=== PATIENT | female | born 1950 | race Caucasian/White ===

== ENCOUNTER 2016-10-17 12:40 | Emergency (ER) | payer OTHER ==
[~2016-10-17] VITALS: Ht 161.3 cm; Wt 58.0 kg
[~2016-10-17 12:40] MED LIST: CHOL200025 PO; CYAN1TAB42 PO; ESTR1PAT10 TD; IBUP200T48 PO; PER5 PO; POLY1PAC PO
[2016-10-17 12:45] VITALS: BP 158/93; PULSE 118; RESP 15; O2SAT 100
[2016-10-17 13:20] LABS: BASOPHILS % (AUTO) 0.4 % (0-3); EOSINOPHILS % (AUTO) 0.7 % (0-5); MONOCYTES % (AUTO) 8.7 % (4-12); Mean Corpuscular Volume 96.8 fL (81-100); NEUTROPHILS % (AUTO) 67.8 % (40-74); Platelet Count 229 bil/L (150-400)
[2016-10-17] MEDS ORDERED: 0.9% Sodium Chloride 1,000 ML IV ONE (13:35)
--- NOTE | 2016-10-17 13:42 | DRSVH ---
PROCEDURE: X-RAY CHEST ONE VIEW, PORTABLE ([id number]) INDICATIONS: Chest pain TECHNIQUE: One view of the chest was acquired. COMPARISON: None. FINDINGS: Surgical changes and devices: None. Lungs and pleura: No pleural effusions or pneumothorax. Lungs are clear. Mediastinum: Mediastinal contours appear normal. Heart size is normal. Bones and chest wall: No suspicious bony lesions. Overlying soft tissues appear unremarkable. IMPRESSION: No acute cardiopulmonary disease process. Dictated by: Marina Ruiz MD, PhD on 10/17/2016 at 13:40 Approved by: Marina Ruiz MD, PhD on 10/17/2016 at 13:40
[2016-10-17 13:44] LABS: TROPONIN T < 0.010 ug/L (0.0-0.011)
[2016-10-17 13:53] LABS: Magnesium 2.4 mg/dL (1.6-2.6)
--- NOTE | 2016-10-17 14:43 | ED.REPORT ---
HPI-General Illness Date of Service Oct 17, 2016 ED Provider: Kory Steward DO Mrs. Mariangel Muniz is a healthy 66-year-old with benign past medical history recent elevation in cholesterol, hysterectomy 6 years ago, and IBS, currently not on estrogen presents to the [facility] emergency Department with 2 week history of intermittent elevated heart rate at rest with associated heartburn, headache, blurry vision, left shoulder "twingeing." She reports that one of these episodes on Friday schedule appointment for her primary care physician on the following Friday at which point an EKG was obtained which was normal and she was advised to call the emergency department if another one of these episodes happened. 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 He currently takes no prescription medications, has allergy to codeine, and antihistamine? She denies fever, chills, nausea, vomiting, dizziness, syncope, difficulty breathing, abdominal pain. Nursing Notes Stated Complaint: HR INCREASING/DIZZY Chief Complaint: Dysrhythmia/Cardiac Nursing Notes Reviewed: Yes Allergies: Coded Allergies: codeine (Verified Allergy, Unknown, UNKNOWN, 06/03/13) Uncoded Allergies: ANTIHISTIME (Allergy, Intermediate, make sleepy, 07/06/13) Scheduled Cholecalciferol-Expunged Drug, Do Not Renew! (Vitamin D3-Expunged Drug, Do Not Renew!) 2,000 Unit Tablet 2,000 UNIT PO DAILY Cyanocobalamin/FA-Expunged Drug, Do Not Renew (Vitamin E34-Znbvu Acid-Expunged Drug, Do Not) 1 Each Tablet 1 EACH PO DAILY 500MCG Estradiol-Expunged Drug, Do Not Renew! (Xyrytpt-Jit-Wvvgdgac Drug, Do Not Renew! ) 1 Patch.bwk Patch.tdsw 1 PATCH.BWK TD 2X/WK 0.025MG/24HRS IBUPROFEN-Expunged Drug, Do Not Renew! (IBUPROFEN-Expunged Drug, Do Not Renew!) 200 Mg Tablet 200 MG PO PRN PEG 3350-Expunged Drug, Do Not Renew! (MIRALAX-Expunged Drug, Do Not Renew!) 17 Gm/Pkt Packet 17 GM PO DAILY Mix with 8 oz water, soda, juice, coffee or tea. Scheduled PRN oxyCODone/APAP-Expunged, Do Not Renew! (oxyCODone/Apap 5/325mg-Expunged, Do Not Renew) Tablet 1 TAB PO Q4H PRN PRN One tablet by mouth every 4-6 hours as needed for severe pain. General Time Seen by MD: 13:05 Chief Complaint Not feeling well Sudden in Onset?: Yes Past Medical History Past Medical History Hysterectomy 6 years ago. Unspecified Left Lower extremity ortho procedure. IBS Cervical spondolysis Abnormal postmenopausal bleeding Urinary retention Review of Systems A comprehensive review of systems was conducted with the patient and found to be negative except as above in the History of Present Illness. Physical Exam General: Appears younger than stated age pleasant elderly lady sitting up in bed and currently in no acute distress, well-developed, well-nourished, appropriately interactive HEENT: Normocephalic, atraumatic. External ears without defect. Pupils equal, round, and reactive to light and accommodation. Anicteric sclerae, moist conjunctivae, and no lid lag. Oropharynx free of erythema and cobble stoning with moist mucosa. Neck: Supple with full range of motion. No jugular venous distension. No bruits. No lymphadenopathy or thyromegaly. Cardiovascular: Regular rate and rhythm with no murmurs, rubs, or gallops appreciated Pulmonary: Clear to auscultation bilaterally with no crackles, wheezes, or rhonchi. Normal respiratory effort with no use of accessory muscles. Abdomen: Bowel tones present. Soft, nontender, nondistended. No hepatosplenomegaly or masses appreciated. Extremities: No clubbing, cyanosis, edema, or lymphadenopathy appreciated. Skin: Normal temperature, turgor, and texture; no rash, ulcers, or subcutaneous nodules appreciated. Neurological: Cranial nerves grossly intact. Normal muscle strength, tone, and bulk. Reflexes, coordination, and sensory function within normal limits. No known gait impairment. Psychiatric: Normal mood and affect. Alert and oriented to person, place, and time. Vital Signs Vital Signs Date Time Temp Pulse Resp B/P Pulse Ox O2 Delivery O2 Flow Rate FiO2 10/17/16 15:03 83 16 154/93 98 10/17/16 12:45 36.4 118 15 158/93 100 Room Air Interpretation & Diagnostics Lab Results Interpretation Result Diagram: 10/17/16 1300 10/17/16 1300 Test 10/17/16 13:00 10/17/16 14:09 White Blood Count 10.2th/mm3 (3.8-10.1) Red Blood Count 4.44mil/mm3 (3.90-5.20) Hemoglobin 14.2g/dL (12.0-15.6) Hematocrit 43.0% (35.0-46.0) Mean Corpuscular Volume 96.8fL (81-100) Mean Corpuscular Hemoglobin 32.0pg (27.0-35.0) Mean Corpuscular Hemoglobin Concent 33.0% (32.0-37.0) Red Cell Distribution Width 12.8% (12.3-15.4) Platelet Count 229bil/L (150-400) Neutrophils (%) (Auto) 67.8% (40-74) Lymphocytes (%) (Auto) 22.1% (14-46) Monocytes (%) (Auto) 8.7% (4-12) Eosinophils (%) (Auto) 0.7% (0-5) Basophils (%) (Auto) 0.4% (0-3) Sodium Level 136mEq/L (134-144) Potassium Level 4.3mEq/L (3.5-5.2) Chloride Level 99mEq/L (97-108) Carbon Dioxide Level 22mmol/L (18-29) Blood Urea Nitrogen 21mg/dL (8-27) Creatinine 0.55mg/dL (0.57-1.00) Estimat Glomerular Filtration Rate 159mL/min (>59) Glucose Level 106mg/dL (60-99) Calcium Level 10.4mg/dL (8.5-10.1) Magnesium Level 2.4mg/dL (1.6-2.6) Total Bilirubin 0.6mg/dL (0.0-1.2) Aspartate Amino Transf (AST/SGOT) 23U/L (0-50) Alanine Aminotransferase (ALT/SGPT) 38U/L (0-32) Alkaline Phosphatase 111U/L (25-165) Troponin T < 0.010ug/L (0.0-0.011) Total Protein 7.4g/dL (6.4-8.4) Albumin 4.8g/dL (3.4-5.0) Thyroid Stimulating Hormone (TSH) 0.917uIU/mL (0.450-4.500) Free Thyroxine 1.22ng/dL (0.82-1.77) D-Dimer < 0.5mg/L (<0.50) Re-Eval/Medical Decision Med Decision/Clinical Course Mrs. Mariangel Muniz very healthy active 66-year-old female with a recent history of racing heart and other associated symptoms such as heartburn, chest tightness, left shoulder pain, blurry vision and anxiety. She does not take any prescription medications. Differential for previous symptoms include: Pulmonary embolism, SVT, A. fib. We obtained an EKG which showed sinus tachycardia and some mild abnormal R-wave progression but no elevated or depressed ST segments, no Q waves present either. We will obtain troponins, TSH, d-dimer since she is PERC score positive for age. If all of her tests are negative she should follow up with her primary care physician and her cup setter lockstitch for probable Holter monitor and echocardiogram. Discharge & Departure Primary Impression: General ill feeling Additional Impressions: Anxiety Tachycardia Disposition: Home Discharge Condition All VS Reviewed: Yes Condition: Stable Additional Instructions: During your visit to [facility] Emergency Department we obtained blood work for infectious markers, hemoglobin levels, electrolytes and troponins (a chemical measure of your heart health). We also obtained a chest x-ray and an EKG. All your lab values were within normal limits and your imaging and EKG showed no acute processes or abnormalities. Do not hesitate to call emergency services or your primary care physician if you experience any of the following. -High unrelenting fevers. -Uncontrolled vomiting. -Severe hypertension. -Syncope or loss of consciousness. -Chest pain or severe shortness of breath. Recommend you follow up with your primary care physician and establish care with a cup setter lockstitch for Holter monitoring and echocardiagram. We will also contact your PCP Dr. Huma Koch. Referrals: Huma Koch MD (PCP) Attending Statement The patient was seen and examined together with Dr. Tavares on 10/17/16 and I have added additional information to the note above. copies to: Huma Koch MD, COREY P DO Oct 17, 2016 13:49 OKory Clarke DO Oct 17, 2016 16:22
[2016-10-17 15:03] VITALS: BP 154/93; PULSE 83; RESP 16; O2SAT 98
[2017-03-12] MEDS ORDERED: CHOL5000 PO (11:15)
[2017-03-12] MEDS ORDERED: IBUP200C PO (11:15)
[2017-03-12] MEDS ORDERED: METO-272 PO (11:15)
[2017-03-12] MEDS ORDERED: VIT1TABL83 PO (11:15)
[2017-03-12] MEDS ORDERED: METR45CR TOP (11:15)
[2017-03-12] MEDS ORDERED: LACT1CAP60 PO (11:15)
== END 2016-10-17 15:00 | disposition home or self-care (01) ==
LOC: SED 12:40
DX: F41.9 Anxiety disorder, unspecified (principal); R00.0 Tachycardia, unspecified; Z88.5 Allergy status to narcotic agent; Z88.8 Allergy status to other drugs, medicaments and biological substances
CPT/HCPCS: 36415; 71010; 80053; 83735; 84439; 84443; 84484; 85025; 85379; 93005; 96360; 99285; J7030

== ENCOUNTER 2017-03-13 12:34 | Day surgery (SDC) | payer OTHER ==
[~2017-03-13] VITALS: Ht 160 cm; Wt 60.7 kg
[2017-03-13] VITALS (7 sets, daily range): BP systolic 120–139; BP diastolic 62–70; PULSE 70–88; RESP 12–17; O2SAT 93–99
[~2017-03-13 12:34] MED LIST changes: -CHOL200025 PO; +CHOL5000 PO; -CYAN1TAB42 PO; +Dexamethasone 4 mg/mL Inj IVPUSH PRN; +EPHEDrine Sulfate 50 mg/mL Inj IVPUSH PRN; -ESTR1PAT10 TD; +HYDROmorphone 1 mg/mL Inj IVPUSH PRN; +IBUP200C PO; -IBUP200T48 PO; +LACT1CAP60 PO; +Labetalol 5 mg/mL 4 mL Inj IV PRN; +Lactated Ringer's 1,000 ML IV SCH; +Lactated Ringer's 500 ML IV PRN; +METO-272 PO; +METR45CR TOP; +MetoCLOpramide 5 mg/mL 2 mL Inj IVPUSH PRN; +Ondansetron 2 mg/mL 2 mL Inj IVPUSH PRN; -PER5 PO; -POLY1PAC PO; +Phenylephrine 10,000 mCg/mL Inj IVPUSH PRN; +VIT1TABL83 PO; +fentaNYL-PF 50 mCg/mL 2 mL Inj IVPUSH PRN; +hydrALAZINE 20 mg/mL Inj IVPUSH PRN
[2017-03-13] MEDS ORDERED: Ketamine 10 mg/mL 20 mL Inj ONE (12:35)
[2017-03-13] MEDS ORDERED: Phenylephrine/NS-PF 100 mCg/mL 5 mL Syringe IVPUSH ONE (12:35)
[2017-03-13] MEDS ORDERED: Lidocaine PF 1% 30 mL Inj ONE (12:35)
[2017-03-13] MEDS ORDERED: Succinylcholine Chloride 20 mg/mL 5 mL Inj ONE (12:35)
[2017-03-13] MEDS ORDERED: Dexamethasone 4 mg/mL Inj ONE (12:35)
[2017-03-13] MEDS ORDERED: EPHEDrine/NS 5 mg/mL 5 mL Syringe ONE (12:35)
[2017-03-13] MEDS ORDERED: fentaNYL-PF 50 mCg/mL 2 mL Inj ONE (12:35)
[2017-03-13] MEDS ORDERED: Propofol 10,000 mCg/mL 20 mL Inj ONE (12:35)
[2017-03-13] MEDS ORDERED: Ondansetron 2 mg/mL 2 mL Inj ONE (12:35)
[2017-03-13] MEDS ORDERED: Lactated Ringer's 1,000 ML IV ONE (13:21)
--- NOTE | 2017-03-13 15:21 | DRSVH ---
PROCEDURE: NM PARATHYROID INJECTION ONLY INDICATIONS: SESTAMBI INJECTION 30 MINUTES PRIOR TO INCISION. COMPARISON: None. FINDINGS/IMPRESSION: The 8.76 mCi of technetium 99m sestamibi was injected intravenously 30 minutes prior to the patient's surgery. No images were obtained. Dictated by: Con Sharif M.D. on 03/13/2017 at 15:18 Approved by: Con Sharif M.D. on 03/13/2017 at 15:19
--- NOTE | 2017-03-13 15:49 | PCM.HPANE ---
Patient Data Date of Service: Mar 13, 2017 Surgeon Admitting Provider: Attending Provider:Tay King MD Primary Care Physician:Huma oKch MD Other Provider:Evy Menjivar Anesthesia Reason for Visit Hyperparathyroidism Ht/WT & BMI Height (Feet): 5 Height (Inches): 3 Weight (Kilograms): 60.7 Body Mass Index 23.00 Allergies Coded Allergies: codeine (Verified Allergy, Unknown, nausea, doesnt like, 03/12/17) Uncoded Allergies: ANTIHISTIME (Allergy, Intermediate, make sleepy, 07/06/13) LACTOSE INTOLERANT (Allergy, Unknown, 03/12/17) Past Anesthesia History Anesthesia History: Denies:: Abnormal Airway, Anesthesia Reactions, Difficult Intubation, Fam Anesthesia Reaction, Malignant Hyperthermia Diabetes History Hx Diabetes?: No MRSA MRSA: No Medications Hypertension Medication: No Home Meds Incl Beta Bev: Yes Date Beta Bev Taken: Mar 12, 2017 Time Beta Bev Taken: 2100 Reported Medications Cholecalciferol (Vitamin D3) (Vitamin D3)5,000 Unit Capsule5,000 Unit PO DAILY 03/12/17 Vit B Comp/C/FA/Iron/Vit E (Vitamin B Complex Tablet)1 Each Tablet1 Each PO DAILY 03/12/17 Lactobac Cmb #3/Fos/Pantethine (Probiotic & Acidophilus Cap)1 Each Capsule1 Each PO DAILY 03/12/17 Metronidazole (Metronidazole Cream)45 Gm Cream..g.1 Applic TOP BID #45 GM Ref 0 03/12/17 Metoprolol Succinate ER 50 Mg Tab.er.24h50 Mg PO DAILY Ref 0 03/12/17 Ibuprofen 200 Mg Tqvlxov185 Mg PO QID PRN For Pain Ref 0 03/12/17 Discontinued Reported Medications IBUPROFEN-Expunged Drug, Do Not Renew! 200 Mg Qzpmsh589 Mg PO PRN 07/06/13 PEG 3350-Expunged Drug, Do Not Renew! (MIRALAX-Expunged Drug, Do Not Renew!)17 Gm/Pkt Dpmndb28 Gm PO DAILY Mix with 8 oz water, soda, juice, coffee or tea. 06/03/13 Cholecalciferol-Expunged Drug, Do Not Renew! (Vitamin D3-Expunged Drug, Do Not Renew!)2,000 Unit Tablet2,000 Unit PO DAILY 06/03/13 Cyanocobalamin/FA-Expunged Drug, Do Not Renew (Vitamin J28-Wchis Acid-Expunged Drug, Do Not)1 Each Tablet1 Each PO DAILY 500MCG 06/03/13 Estradiol-Expunged Drug, Do Not Renew! (Qpsdsqw-Syt-Xhzrxluw Drug, Do Not Renew! )1 Patch.bwk Patch.tdsw1 Patch.bwk TD 2X/WK 0.025MG/24HRS 06/03/13 Discontinued Scripts oxyCODone/APAP-Expunged, Do Not Renew! (oxyCODone/Apap 5/325mg-Expunged, Do Not Renew) Tablet1 Tab PO Q4H PRN #20 One tablet by mouth every 4-6 hours as needed for severe pain. Prov:Emily Stallworth DO 07/07/13 History History of ENT Problems?: No HEENT History: Positive for:: Sinus Problem (sinus drainage- not serious ) Denies:: Abnormal Airway Cataracts Difficult Intubation Dysphagia Glaucoma Hearing Problem TMJ Denture Type: None Teeth Condition: Within Normal Limits Other HEENT Pertinent History: Question of masseter muscle spasm in past, although story does not sound quite right. No succinylcholine was given and no signs of MH afterwards. Hx of Heart Problems?: Yes Cardiovascular History: Positive for:: Irregular Heartbeat (related to parathyroid - palpitations) Denies:: AICD Abdominal Aortic Aneurism Atrial Fibrillation Chest Pain Congestive Heart Failure Coronary Artery Disease Edema Heart Murmur Hypertension Pacemaker Peripheral Vascular Rheumatic Fever Hx of Respiratory Problem?: No Respiratory History: Denies:: Asthma COPD Emphysema Oxygen Administration Pneumonia Tuberculosis Use of C-PAP Machine Use of Inhalers / NEBS Hx Neurologic Problems?: No Neurological History: Denies:: CVA Dizziness Headaches (seasonal ) Multiple Sclerosis Parkinson's Disease Seizures TIA Hx of GI Problems?: Yes Hx of Problems?: No Genitourinary History: Denies:: Kidney Stones Urinary Tract Infection Female Hx: Denies:: Currently (hysterectomy) Endometriosis Problems with Breasts? Skin History: Denies:: History Skin Disorders? Pressure Ulcers Hx Musculoskeletal Problems?: Yes Musculoskeletal History: Positive for:: Back Injury (neck- herniated discs- cervical stenosis) Osteoarthritis Denies:: Fibromyalgia Joint Replacement Musculoskeletal Trauma Myasthenia Gravis Rheumatoid Arthritis Hx of Psycho/Social Problems?: No Psycho Social History: Denies:: Anxiety Hx Depression Hx Surgeries?: Yes (lavh, bso, abdominoplasty, salivary gland) Hx Any Other Health Problems?: Yes Other History: Positive for:: Thyroid Disease (parathyroid current admission problem ) Denies:: Cancer Endocrine Disease Hospitalization History Blood Transfusions: Positive for:: Accept Blood Products? Denies:: Blood Transfusions Hx Diabetes: No Hx Alcohol Use: YesAlcoholic Drinks Per Day: one drink dailyHx Substance Use: NoHave You Smoked inLast 12 mo: No Stop/Bang Treated for Sleep Apnea?: No Do You Have a CPAP Machine?: No S-Snoring: Do You Snore Loudly: No T-Tired: feel tired, fatigued: No O-Obsered: Observed not breath: No P-Blood Pressure: treated: Yes B- Body Mass Index > 35 kg/m2: No A- Age over 50: Yes N- Neck Large Circumference: No G- Gender Male: No Additional Information 2 SOL Risk Assessment: Low Risk, <3 Yes Risk Assessment Category Category 1A: Patient has history of documented sleep apnea, and HAS NOT received any narcotic, sedative or anesthesia administration during this stay. Category 1B: Patient has history of documented sleep apnea, and HAS received any narcotic , sedative or anesthesia administration during this stay Category 2: Patient has SUSPECTED Obstructive Sleep Apnea, and HAS received any narcotic , sedative or anesthesia administration during this stay. Category 3: Patient has SUSPECTED Obstructive Sleep Apnea and HAS NOT received narcotic, sedative or anesthesia administration during this stay. Category 4: Outpatient in Procedural Areas with known sleep apnea or who screen positive for High Risk via the STOP/BANG questionnaire. Exam Exam Vital Signs Vital Signs Date Time Temp Pulse Resp B/P Pulse Ox O2 Delivery O2 Flow Rate FiO2 03/13/17 13:20 36.5 70 16 130/66 99 Room Air General Appearance: Alert, Oriented X3, Cooperative, No Acute Distress HEENT/AIRWAY: MP 2, Mouth Opening (looks normal, not excessive, but not abnormal) Lungs: Clear to Auscultation, Normal Air Movement Heart: Exam Unremarkable, Regular Rate/Rhythm, No Murmurs/Rubs/Gallops Meds/Labs/Diagnostics Admission Meds Current Medications Lactated Ringer's (Lr) 1,000 ml @ ud STK-MED ONCE IV Last administered on 03/13t 13:21; Start 03/13/17 at 13:21; Stop 03/13/17 at 13:22; Status DC Plan Impression Patient chart reviewed, patient interviewed and anesthestic plan with risks, benefits, and alternatives discussed, and informed consent obtained. NPO per Anesth. Guidelines: Yes ASA Physical Status: ASA2 Mod Systemic Disease Anesthetic Plan: GA Bene/Risks/Altern/Consents: Yes HP Complete Prior to Induction: Yes Brandon Kingston MD Mar 13, 2017 15:49
[2017-03-13] MEDS ORDERED: Bupivacaine-MPF 0.5% W/EPI 30 mL Inj INFILTRATE ONE (15:51)
[2017-03-13] MEDS ORDERED: oxyCODONE-Acetamin 5-325 mg Tablet PO PRN (16:40)
--- NOTE | 2017-03-13 17:05 | PCM.ANEP1 ---
Post Anesthesia PACU Phase 1 Assessment Vital Signs Vital Signs Date Time Temp Pulse Resp B/P Pulse Ox O2 Delivery O2 Flow Rate FiO2 03/13/17 16:59 86 17 126/70 94 03/13/17 16:55 88 12 127/69 94 03/13/17 16:50 37.4 85 13 139/70 93 Room Air 03/13/17 13:20 36.5 70 16 130/66 99 Room Air Anesthetic Administered: GA Level of Alertness: Sleepy, easy to arouse HAIDER's with Equal Strength: Yes Pain: No Nausea or Vomiting: No CV Function & Hydration Stable: Yes Airway Device: Oxygen Delivery: Room Air Lungs: Clear to Auscultation, Normal Air Movement PACU Phase 2 Assessment Complications: No Follow up Care: N/A Patient Instructions Provided: N/A Brandon Kingston MD Mar 13, 2017 17:05
--- NOTE | 2017-03-13 21:23 | OP ---
[address] [address] OPERATIVE REPORT PATIENT: CAROL ANN BECERRIL : 1950 MR#: [id number] ADMIT: 03/13/2017 JOB ID: [id number] DATE OF SURGERY: 03/13/2017 SURGEON: Tay King MD. ANESTHESIA: General. PREOPERATIVE DIAGNOSIS(ES): Primary hyperparathyroidism. POSTOPERATIVE DIAGNOSIS(ES): Primary hyperparathyroidism. OPERATIVE PROCEDURE: Minimally invasive parathyroid exploration using gamma probe for confirmation as well as intraoperative PTH. FRYER LINE HELPER: Lew Palmer MD (administrative support assistant was required for the safe and timely completion of the case), and Jona Carlton PA-C. COMPLICATIONS: None. ESTIMATED BLOOD LOSS: Less than 2 mL. CONDITION: Satisfactory. SPECIMEN: 1. Right inferior parathyroid adenoma. 2. Right pretracheal tissue. FINDINGS: Preoperative imaging indicated a right-sided adenoma. Intraoperatively, there was a corresponding obvious adenoma just anterior to the carotid. Background gamma region was 315 with ex vivo count at 135 after removing it. The preoperative CT also suggested a small nodule lower in the neck. This had similar characteristics to a parathyroid adenoma and therefore I decided to investigate this. There was a small nodule that actually looked like parathyroid tissue. I removed that as it was in the location for typical inferior parathyroid sitting just below the thyroid anterior to the trachea. The ex vivo count on that was only 7. The intraoperative PTH was drawn prior to removal of the adenoma which was 59; 5 minutes later it was 31. The case was therefore concluded. INDICATIONS/SIGNIFICANT HISTORY: The patient is a 66-year-old female with a history of unexplained sinus tachycardia for which she was referred to a media production support manager. Her evaluation was unremarkable other than she was found to have an elevated calcium and PTH. Subsequent workup suggested primary hyperparathyroidism. Preoperative localization studies including a sestamibi and CT suggested a right-sided adenoma. She was referred to me and elected to undergo exploration. OPERATIVE TECHNIQUE: The patient prior to going to the operating room received a nuclear medicine injection. She was then been brought back to the operating theater and placed in supine position. General anesthesia was administered. The neck was prepped and draped in standard surgical fashion and a procedural pause performed. A 2 cm anterior cervical incision was made several centimeters below the cricoid cartilage. Dissection was carried down through the skin and subcu tissue. Local anesthetic had been injected. I then raised superior and inferior subplatysmal flaps. Right strap muscles were then sequentially elevated. I then explored an area corresponding with the adenoma seen on CT. Overlying the right carotid sheath, there was obvious adenoma. This was dissected free. PTH was drawn immediately prior to clipping the vascular pedicle. The vascular pedicle was then clipped and the specimen removed. Gamma probe readings were as recorded above. A subsequent PTH level was drawn 5 minutes and 10 minutes after. While waiting on PTH, I explored lower in the neck in the area of another nodule seen on CT. There was a small vessel leading to what appeared to be parathyroid tissue. I suspect this is probably normal parathyroid but elected to remove it given the CT findings. It would also be unusual to have two parathyroids in an anterior location. This was removed. The neck was then closed with 3-0 Vicryl for the straps and platysma and a running 4-0 for the skin. The 5 minute PTH returned at 31 and at 10 minutes at 27. The case was concluded.
--- NOTE | 2017-03-17 10:38 | PATH ---
SURGICAL PATHOLOGY Attending Physician:Tay King MD CASE STATUS: Signed Out PATIENT NAME: CAROL ANN BECERRIL PID: [id number] : 1950 DATE COLLECTED:03/13/2017 00:00 SPECIMEN: 1: Parathyroid Gland 2: Trachea, Biopsy CLINICAL HISTORY: HYPERPARATHYROID 1). RIGHT PARATHYROID ADENOMA 2). RIGHT PRETRACHEAL TISSUE FINAL DIAGNOSIS: 1.RIGHT PARATHYROID ADENOMA SPECIMEN: PARATHYROID ADENOMA (0.3 GRAMS MEASURING 1.3 X 0.8 X 0.3 CM). Negative for malignancy and significant atypia. 2.RIGHT PRETRACHEAL TISSUE: FRAGMENTS OF BENIGN THYROID TISSUE. NO PARATHYROID TISSUE IDENTIFIED. ICD10 D35.1 GROSS DESCRIPTION: The specimens are received in formalin, labeled with the patient's name, and sublabeled as the following: (1) right parathyroid adenoma; (2) right pretracheal tissue. (1) The specimen consists of a palacios rubbery parathyroid gland (0.3 g, 1.3 x 0.8 x 0.3 cm). The cut surface is palacios smooth and homogenous. No nodules, masses or lesions are identified. Section code: (1A) parathyroid gland, bisected. Specimen entirely submitted. (2) The specimen consists of a fragment of palacios-pink rubbery glistening tissue (0.5 x 0.4 x 0.2 cm) with attached adipose tissue (0.9 x 0.7 x 0.2 cm). The tissue cut surface is palacios-pink smooth and homogenous. The adipose tissue is yellow lobular and unremarkable. Section code: (2A) tissue, bisected. Specimen entirely submitted. 03/15/17 JM MICRO DESCRIPTION: See diagnosis. ICD-9 CODES: CPT CODES: 1: 23747 2: 80274 Electronically Signed Out Chun Rao MD [facility] [address], [place] [address] Technical component performed at [facility], [facility] [address], [place], [address]
== END 2017-03-13 23:59 | disposition home or self-care (01) ==
LOC: SAS 12:34
PROVIDERS: ATTEND General Practice
DX: D35.1 Benign neoplasm of parathyroid gland (principal); E21.0 Primary hyperparathyroidism; I47.1 Supraventricular tachycardia; E78.5 Hyperlipidemia, unspecified; M19.90 Unspecified osteoarthritis, unspecified site
CPT/HCPCS: 36415; 60500; 78808; 83970; A9500; J0330; J1100; J1885; J2250; J2370; J2405; J3010; J7120